=== PATIENT | female | born 1965 | race African-American/Black ===

== ENCOUNTER 2017-02-19 09:57 | Emergency (ER) | payer OTHER ==
[~2017-02-19] VITALS: Ht 175.3 cm; Wt 117.0 kg
[~2017-02-19 09:57] MED LIST: ASPIRIN325 MG ORAL; ATORVASTATIN CA40 MG ORAL; CHLORTHALIDONE25 MG ORAL; HYDROCODON-ACE1 EAC4 ORAL; NORVASC10 MG ORAL; TRAMADOL HCL50 MG ORAL
[2017-02-19 11:51] VITALS: BP 129/79
[2017-02-19 12:20] LABS: APPEARANCE,URINE CLEAR; KETONES,URINE NEGATIVE (NEGATIVE); LEUKOCYTE ESTERASE ,URINE 1+ (NEGATIVE); NITRITE,URINE NEGATIVE (NEGATIVE); PH,URINE 5 (4.5-8.0); PROTEIN,URINE 3+ (NEGATIVE); UROBILINOGEN,URINE NORMAL MG/DL (0.0-1.0)
[2017-02-19 12:32] LABS: BACTERIA,URINE FEW /HPF; RBC,URINE 0-2 /HPF (0 - 2); SQUAMOUS EPITHELIAL CELL,UR FEW /LPF (NONE/OCC)
[2017-02-19] MEDS ORDERED: ROBAXIN-750750 MG PO (12:48)
[2017-02-19] MEDS ORDERED: NITROFURANTOIN100 M2 ORAL (12:48)
[2017-02-19 12:54] VITALS: BP 129/79
--- NOTE | 2017-02-20 16:49 | Emergency Room Report ---
History of Present Illness General Chief Complaint: Back Pain-No Injury Source: Patient Present Illness HPI [id number] here for left lower back pain for a few days. No known exacerbating factor. Denies urinary complaint. has had known chronic knee pain "for years." History of arthritis. Not taking anything for pain. Allergies: Coded Allergies: No Known Allergies (Unverified , 11/13/13) Patient History Past Medical History: other - OA Past Surgical History: none Pertinent Family History: none Social History: Denies: alcohol use, drug use, smoking Now: No Immunizations: UTD Reviewed Nursing Documentation: PMH: Agreed, PSxH: Agreed Nursing Documentation-PMH Past Medical History: No History, Except For Hx Cardiac Problems: Yes Hx Hypertension: Yes - high cholesterol Hx Pacemaker: No Hx Asthma: No Hx COPD: No Hx Diabetes: No Hx Cancer: No Hx Gastrointestinal Problems: Yes Hx Dialysis: No Hx Neurological Problems: Yes - Chronic knee Hx Cerebrovascular Accident: No Hx Transient Ischemic Attacks: No Hx Dementia: No Hx Alzheimer's Disease: No Hx Parkinson's Disease: No Hx Meningitis: No Hx Encephalitis: No Hx Seizures: No Hx Epilepsy: No Hx Multiple Sclerosis: No Hx Cerebral Palsy: No Hx Amyotrophic Lat Sclerosis: No Hx Guillian-[place] Syndrome: No Hx Paralysis: No Hx Peripheral Neuropathy: No Hx Spinal Cord Injury: No Hx Head Trauma: No Hx Traumatic Brain Injury: No Hx Memory Loss: No Hx Concentration Difficulty: No Hx Speech Problem: No Hx Tremors: No Hx Vertigo: No Hx Dizziness: No Hx Syncope: No Hx Headaches: Yes Hx Aphasia: No Hx Dysphasia: No Hx Numbness: No Hx Weakness: No Hx Fatigue: Yes Hx Neurologic Surgery: No Hx Brain Shunt: No Review of Systems All Other Systems: negative except mentioned in HPI Physical Exam Vital Signs Date Time Temp Pulse Resp B/P Pulse Ox O2 Delivery O2 Flow Rate FiO2 02/19/17 10:40 97.9 61 14 132/85 95 Room Air Sp02 EP Interpretation: reviewed, normal General Appearance: normal inspection, well appearing, no apparent distress, alert, GCS 15, non-toxic, obese Eyes: bilateral eye EOMI, bilateral eye PERRL ENT: normal ENT inspection, hearing grossly normal, normal voice Neck: normal inspection, full range of motion, supple, no bony tend Respiratory: normal inspection, lungs clear, normal breath sounds, no respiratory distress, no retraction, no wheezing Cardiovascular #1: regular rate, rhythm, no edema Gastrointestinal: normal inspection, normal bowel sounds, non tender, soft, no guarding, no hernia Genitourinary: no CVA tenderness Musculoskeletal: normal inspection, back normal, normal range of motion, Vera' s Sign negative Neurologic: normal inspection, alert, oriented x3, responsive, director prospect III-XII nml as tested, motor strength/tone normal, speech normal Psychiatric: normal inspection, judgement/insight normal, mood/affect normal Skin: normal inspection, normal color, no rash Medical Decision Making Diagnostic Impression: Primary Impression: Dysuria Additional Impression: Back pain Qualified Codes: M54.5 - Low back pain ER Course UA with +1 LE, WBCs Will tx empirically with Abx Also Robaxin for chronic LBP DC home PMD followup Last Vital Signs Date Time Temp Pulse Resp B/P Pulse Ox O2 Delivery O2 Flow Rate FiO2 02/19/17 12:54 98.1 65 18 129/79 97 Room Air Status: improved Disposition: HOME, SELF-CARE Condition: Improved Scripts Methocarbamol* (ROBAXIN-750*) 750 Mg Tablet 750 MG PO TID, #30 TAB 0 Refills Prov: ROYA BECK M.D. 02/19/17 Nitrofurantoin Monohyd/M-Cryst* (MACROBID 100 MG*) 100 Mg Capsule 100 MG ORAL EVERY 12 HOURS for 7 Days, #14 CAP Prov: ROYA BECK M.D. 02/19/17 Patient Instructions: Dysuria, Back Pain, Adult ROYA BECK M.D. Feb 20, 2017 16:49
== END 2017-02-19 13:15 | disposition home or self-care (01) ==
LOC: EMR 11:05
DX: M54.5 Low back pain (principal); R30.0 Dysuria; E78.00 Pure hypercholesterolemia, unspecified; M19.90 Unspecified osteoarthritis, unspecified site
CPT/HCPCS: 81003; 99284

== ENCOUNTER 2019-01-04 14:10 | Emergency (ER) | payer OTHER ==
[~2019-01-04] VITALS: Ht 165.1 cm; Wt 117.9 kg
[~2019-01-04 14:10] MED LIST changes: +NITROFURANTOIN100 M2 ORAL; +ROBAXIN-750750 MG PO
[2019-01-04] MEDS ORDERED: METFORMIN ER G500 MG PO (14:18)
[2019-01-04 14:30] VITALS: BP 140/80
--- NOTE | 2019-01-04 14:30 | NUR ---
ED Nurse Note: patient walked in by her self with steady gait, complaining of N/V/D and productive cough with green sputum. patient has nonlabored breathing, O2 sat at 99%. AAO x 4, skin is dry, VSS at this time.
--- NOTE | 2019-01-04 15:31 | Emergency Room Report ---
History of Present Illness General Chief Complaint: General Complaint Source: Patient Present Illness HPI 53-year-old female presents to the emergency department complaining of persistent cough 2 weeks with intermittent mucus production. Patient reports having difficulty with coughing phlegm out. Pt. reports multiple ill contacts ( family members ). pt. reported one episode of diarrhea 3 days ago, denies blood in the stool, abdominal pain/tenderness or N/V. Patient denies fevers or chills she reports history of smoking, HTN and bronchitis. Patient denies chest pain, palpitations, exertional dyspnea, shortness of breath, neck pain/stiffness, sore throat or ear pain. Allergies: Coded Allergies: No Known Allergies (Unverified , 01/04/19) Patient History Past Medical History: see triage record Past Surgical History: none Pertinent Family History: none Now: No Reviewed Nursing Documentation: PMH: Agreed; PSxH: Agreed Nursing Documentation-PMH Past Medical History: No History, Except For Hx Cardiac Problems: Yes Hx Hypertension: Yes - high cholesterol Hx Pacemaker: No Hx Asthma: No Hx COPD: No Hx Diabetes: Yes - DM2 BORDERLINE Hx Cancer: No Hx Gastrointestinal Problems: Yes Hx Dialysis: No Hx Neurological Problems: Yes - Chronic knee Hx Cerebrovascular Accident: No Hx Transient Ischemic Attacks: No Hx Dementia: No Hx Alzheimer's Disease: No Hx Parkinson's Disease: No Hx Meningitis: No Hx Encephalitis: No Hx Seizures: No Hx Epilepsy: No Hx Multiple Sclerosis: No Hx Cerebral Palsy: No Hx Amyotrophic Lat Sclerosis: No Hx Guillian-[place] Syndrome: No Hx Paralysis: No Hx Peripheral Neuropathy: No Hx Spinal Cord Injury: No Hx Head Trauma: No Hx Traumatic Brain Injury: No Hx Memory Loss: No Hx Concentration Difficulty: No Hx Speech Problem: No Hx Tremors: No Hx Vertigo: No Hx Dizziness: No Hx Syncope: No Hx Headaches: Yes Hx Aphasia: No Hx Dysphasia: No Hx Numbness: No Hx Weakness: No Hx Fatigue: Yes Hx Neurologic Surgery: No Hx Brain Shunt: No Review of Systems All Other Systems: negative except mentioned in HPI Physical Exam Vital Signs Date Time Temp Pulse Resp B/P (MAP) Pulse Ox O2 Delivery O2 Flow Rate FiO2 01/04/19 14:13 98.1 67 16 165/95 96 Room Air Sp02 EP Interpretation: reviewed, normal General Appearance: no apparent distress, alert, GCS 15, non-toxic Head: normocephalic, atraumatic Eyes: bilateral eye normal inspection, bilateral eye PERRL ENT: hearing grossly normal, normal voice Neck: full range of motion Respiratory: lungs clear, normal breath sounds, no rhonchi, no respiratory distress, speaking full sentences, wheezing - scant expiratory wheezes Cardiovascular #1: regular rate, rhythm, no edema, normal capillary refill Musculoskeletal: back normal, gait/station normal, normal range of motion, non- tender Neurologic: alert, oriented x3, responsive, motor strength/tone normal, sensory intact, speech normal, grossly normal Psychiatric: judgement/insight normal Skin: normal color, no rash, warm/dry, well hydrated Lymphatic: no adenopathy Medical Decision Making PA Attestation Dr. Bang is my supervising Physician whom patient management has been discussed with. Diagnostic Impression: Primary Impression: Bronchitis ER Course 53-year-old female presents to the emergency department complaining of persistent cough 2 weeks with intermittent mucus production. Patient reports having difficulty with coughing phlegm out. Pt. reports multiple ill contacts ( family members ). pt. reported one episode of diarrhea 3 days ago, denies blood in the stool, abdominal pain/tenderness or N/V. Patient denies fevers or chills she reports history of smoking, HTN and bronchitis. Patient denies chest pain, palpitations, exertional dyspnea, shortness of breath, neck pain/stiffness, sore throat or ear pain. Ddx considered but are not limited to URI, pneumonia, PE,CHF, Bronchitis. Vital signs: Pt.is afebrile VS are WNL H&PE are most consistent with bronchitis ORDERS: none required at this time, the diagnosis is clinical ED INTERVENTIONS: None required at this time. -Pt. offered Nebs for which she declined. DISCHARGE: At this time pt. is stable for d/c to home. Will provide printed patient care instructions, and any necessary prescriptions. Care plan and follow up instructions have been discussed with the patient prior to discharge. Last Vital Signs Date Time Temp Pulse Resp B/P (MAP) Pulse Ox O2 Delivery O2 Flow Rate FiO2 01/04/19 14:30 58 Room Air 01/04/19 14:30 98.0 14 140/80 96 Disposition: HOME, SELF-CARE Condition: Stable Scripts Albuterol Sulfate* (ALBUTEROL SULFATE MDI*) 8.5 Gm Hfa.aer.ad 2 PUFF INH Q4H, #1 INH 0 Refills Prov: Faby Yadav 01/04/19 Guaifenesin (Guaifenesin) 1,200 Mg Tab.er.12h 1200 MG PO Q12HR for 10 Days, #20 TAB Prov: Faby Yadav 01/04/19 Codeine/Promethazine Hcl* (PROMETHAZINE-CODEINE SYRUP*) 118 Ml Syrup 5 ML ORAL Q6H PRN for For Cough, #120 ML 0 Refills Prov: Faby Yadav 01/04/19 Referrals: [facility],REFERRING (PCP) Patient Instructions: Acute Bronchitis, [id number] Additional Instructions: Take medications as directed. Follow up with a Primary Care Provider in 3-5 days, even if your symptoms have resolved. --Please review list of primary care clinics, if you do not already have a primary care provider Return sooner to ED if new symptoms occur, or current symptoms become worse. Do not drink alcohol, drive, or operate heavy machinery while taking Cough Syrup as this may cause drowsiness. - Please note that this Emergency Department Report was dictated using [employer] burner technology software, occasionally this can lead to erroneous entry secondary to interpretation by the dictation equipment. Faby Yadav Jan 04, 2019 15:31
[2019-01-04] MEDS ORDERED: GUAIFENESIN1200 MG PO (15:32)
[2019-01-04] MEDS ORDERED: ALBUTEROL SULF8.5 GM INH (15:32)
[2019-01-04] MEDS ORDERED: PROMETHAZINE-C118 M1 ORAL (15:32)
[2019-01-04 15:46] VITALS: BP 140/80
--- NOTE | 2019-01-04 15:46 | NUR ---
ER DISCHARGE NOTE: Patient is cleared to be discharged per ERMD, pt is aox4, on room air, with stable vital signs. pt was given dc and prescription instructions, pt was able to verbalize understanding, pt id band removed. pt is able to ambulate with steady gait. pt took all belongings.
== END 2019-01-04 15:46 | disposition home or self-care (01) ==
LOC: EMR 14:58
DX: J40 Bronchitis, not specified as acute or chronic (principal); I10 Essential (primary) hypertension; E11.9 Type 2 diabetes mellitus without complications
CPT/HCPCS: 99282

== ENCOUNTER 2019-07-10 16:20 | Emergency (ER) | payer OTHER ==
[~2019-07-10] VITALS: Ht 172.7 cm; Wt 109.8 kg
[~2019-07-10 16:20] MED LIST changes: +ALBUTEROL SULF8.5 GM INH; +GUAIFENESIN1200 MG PO; +METFORMIN ER G500 MG PO; +PROMETHAZINE-C118 M1 ORAL
--- NOTE | 2019-07-10 16:58 | Emergency Room Report ---
History of Present Illness General Chief Complaint: Skin Rash/Abscess Source: Patient Present Illness HPI Disclaimer: Please note that this report is being documented using [employer] and [employer] technology. This can lead to erroneous entry secondary to incorrect interpretation by the dictating instrument. HPI: 54-year-old female with a history of hypertension, diabetes presents for evaluation of right breast pain swelling and drainage as well as right lower abdominal pain. Patient states symptoms been present for approximately a week. She noted significant itching which she attributed to the hot weather of her right breast. Yesterday, she noticed redness and a small pimple-like mass that was draining some purulent drainage. Denied any bleeding. Denies significant pain, fevers. She is also requesting evaluation for right lower quadrant abdominal pain that has been intermittent over the past week. She reports decreased bowel movements and does not believe she has had one in the last few days. She is status post appendectomy and total hysterectomy. She denies any upper abdominal pain, vomiting, diarrhea, dysuria, hematuria, vaginal bleeding or vaginal discharge. PMH: Diabetes, hypertension PSH: Total hysterectomy, appendectomy Allergies: Denies Social Hx: Denies drug or alcohol abuse Allergies: Coded Allergies: No Known Allergies (Unverified , 01/04/19) Patient History Last Menstrual Period: n/a Nursing Documentation-PMH Past Medical History: No History, Except For Hx Cardiac Problems: Yes Hx Hypertension: Yes - high cholesterol Hx Pacemaker: No Hx Asthma: No Hx COPD: No Hx Diabetes: Yes - DM2 BORDERLINE Hx Cancer: No Hx Gastrointestinal Problems: Yes Hx Dialysis: No Hx Neurological Problems: Yes - Chronic knee Hx Cerebrovascular Accident: No Hx Transient Ischemic Attacks: No Hx Dementia: No Hx Alzheimer's Disease: No Hx Parkinson's Disease: No Hx Meningitis: No Hx Encephalitis: No Hx Seizures: No Hx Epilepsy: No Hx Multiple Sclerosis: No Hx Cerebral Palsy: No Hx Amyotrophic Lat Sclerosis: No Hx Guillian-[place] Syndrome: No Hx Paralysis: No Hx Peripheral Neuropathy: No Hx Spinal Cord Injury: No Hx Head Trauma: No Hx Traumatic Brain Injury: No Hx Memory Loss: No Hx Concentration Difficulty: No Hx Speech Problem: No Hx Tremors: No Hx Vertigo: No Hx Dizziness: No Hx Syncope: No Hx Headaches: Yes Hx Aphasia: No Hx Dysphasia: No Hx Numbness: No Hx Weakness: No Hx Fatigue: Yes Hx Neurologic Surgery: No Hx Brain Shunt: No Review of Systems All Other Systems: negative except mentioned in HPI Physical Exam Vital Signs Date Time Temp Pulse Resp B/P (MAP) Pulse Ox O2 Delivery O2 Flow Rate FiO2 07/10/19 16:28 97.5 60 18 151/85 (107) 98 Room Air General: Awake and alert, no acute distress HEENT: NC/AT. EOMI. Neck: Supple, trachea midline Chest Wall: No tenderness, no deformity. At the 7 o'clock position of the right breast there is a 7 cm circular area of erythema with a central pustule that has been ruptured. No significant drainage currently. No bleeding. Mild tenderness palpation. No fluctuance. Warm to the touch. Cardiovascular: RRR. S1 and S2 normal. No murmur appreciated Resp: Normal work of breathing. No cough, wheezing or crackles appreciated Abdomen: Obese abdomen. Mild tenderness in the right lower quadrant with deep palpation. No rebound. Otherwise nontender. No masses can be appreciated Skin: At the 7 o'clock position of the right breast there is a 7 cm circular area of erythema with a central pustule that has been ruptured. No significant drainage currently. No bleeding. Mild tenderness palpation. No fluctuance. Warm to the touch. MSK: Normal tone and bulk. Moving all extremities. No obvious deformity. Neuro: Awake and alert. Mentating appropriately. Procedures Additional Procedure Procedure Narrative Ultrasound of the right breast. Focused POC ultrasound of right lower breast. Performed at bedside by ia, Dr. Hugo Watts. No deep space infection. Superficial cobblestoning suggestive of cellulitis. No obvious abscess or mass appreciated. Medical Decision Making Diagnostic Impression: Primary Impression: Cellulitis of right breast Additional Impression: Abdominal pain ER Course This 54-year-old female who presents for evaluation of a skin infection on her left breast as well as right lower quadrant abdominal pain with decreased bowel movements. Differential includes but is not limited to breast abscess, cellulitis, carcinoma as well as bowel obstruction, constipation, diverticulitis , inflammatory bowel disease, musculoskeletal pain. Will obtain a abdominal series and an ultrasound of the right breast. She will likely require antibiotics for the right breast but depending on whether or not there is an abscess she may require surgical consult. Her abdominal pain is mild and she has no symptoms of significant obstruction. Disposition depending on imaging. Other X-Ray Diagnostic Results Other X-Ray Diagnostic Results : X-Ray ordered: Abd Indication: Pain EP Interpretation: Yes PA Xray: Interpretation reviewed Interpretation: nonspecific bowel gas, no sbo Impression: Other - constipation. No obstruction Electronically Signed by: Electronically signed by Dr. Hugo Watts Reevaluation Time: 17:46 Last Vital Signs Date Time Temp Pulse Resp B/P (MAP) Pulse Ox O2 Delivery O2 Flow Rate FiO2 07/10/19 16:28 97.5 60 18 151/85 (107) 98 Room Air Reevaluation Impression No evidence of obstruction on abdominal series and no obvious deep space infection or mass on bedside ultrasound of the right breast. The patient will be discharged with antibiotics for a cellulitis and with a prescription for MiraLAX to treat her abdominal discomfort which is likely from constipation. I strongly encourage the patient to follow-up with her PMD and to return to the emergency department if she has worsening abdominal pain or develops vomiting or is unable to have a bowel movement. Advised her to follow-up closely with PMD for the right breast cellulitis as well and to finish the entire course of antibiotics even if symptoms improve over the next few days. She understands and agrees with the treatment plan will be discharged home. Disposition: HOME, SELF-CARE Condition: Stable Scripts Polyethylene Glycol 3350* (POLYETHYLENE GLYCOL 3350*) 17 Gm Powd.pack 17 GM ORAL BID for 7 Days, PACKET Prov: Hugo Watts MD 07/10/19 Dicloxacillin Sodium (DICLOXACILLIN SODIUM) 500 Mg Capsule 500 MG ORAL EVERY 6 HOURS for 7 Days, #28 CAP 0 Refills Prov: Hugo Watts MD 07/10/19 Referrals: NON PHYSICIAN (PCP) Hugo Watts MD Jul 10, 2019 16:58
--- NOTE | 2019-07-10 17:00 | NUR ---
ED Nurse Note:pt. came with small skin erosion on lower part of right breast, pt. is A/ox4 ambulatory, was seen by ER MD, x-ray done
[2019-07-10 17:22] VITALS: BP 151/85
[2019-07-10] MEDS ORDERED: DICLOXACILLIN500 M1 ORAL (17:52)
[2019-07-10] MEDS ORDERED: POLYETHYLENE GL17 GM ORAL (17:52)
--- NOTE | 2019-07-10 18:00 | NUR ---
ER DISCHARGE NOTE: Patient is cleared to be discharged per ERMD, pt is aox4, on room air, with stable vital signs. pt was given dc and prescription instructions, pt was able to verbalize understanding, pt is able to ambulate with steady gait. pt took all belongings.
[2019-07-10 18:03] VITALS: BP 151/85
== END 2019-07-10 18:04 | disposition home or self-care (01) ==
LOC: EMR 16:48
DX: N61.0 Mastitis without abscess (principal); R10.31 Right lower quadrant pain; E11.9 Type 2 diabetes mellitus without complications; I10 Essential (primary) hypertension; Z90.49 Acquired absence of other specified parts of digestive tract; Z90.710 Acquired absence of both cervix and uterus; E78.00 Pure hypercholesterolemia, unspecified
CPT/HCPCS: 74018; 74019; 99284